=== PATIENT | male | born 1965 | race Caucasian/White ===

== ENCOUNTER 2017-04-29 22:36 | Emergency (ER) | payer MEDICAID ==
[~2017-04-29] VITALS: Ht 175.3 cm; Wt 100.0 kg
[~2017-04-29 22:36] MED LIST: HYDR-1348 PO; LACT10SO7 PO; MET5; OMEP20CA4 PO
[2017-04-30] MEDS ORDERED: ONDANSETRON HCL 4MG/2ML VIAL IV STA (00:50)
[2017-04-30] MEDS ORDERED: MORPHINE SULFATE 4 MG/ML CPJ (NOT FOR IM USE) IV STA (00:50)
[2017-04-30 01:07] LABS: HEMATOCRIT. 35.3 % (42.0-52.0); MEAN CORPUSCULAR HEMOGLOBIN 30.7 pg (28.0-32.0); MEAN CORPUSCULAR VOLUME 89.9 fL (80.0-94.0); MEAN PLATELET VOLUME 7.6 fl (7.4-10.4); PLATELET 175 x1000/uL (130-400); RED BLOOD CELL COUNT 3.92 mill/uL (4.7-6.1); RED CELL DISTRIBUTION WIDTH 15.3 % (11.6-14.6)
[2017-04-30 01:15] LABS: INR 1.3; PROTHROMBIN TIME 13.8 sec
[2017-04-30 01:24] LABS: CARBON DIOXIDE 28 mEq/L (21-32); CHLORIDE 97 mEq/L (98-107); TROPONIN I < 0.02 ng/mL (0.00-0.04)
[2017-04-30 01:28] LABS: PLATELET ESTIMATE NORMAL
[2017-04-30] MEDS ORDERED: HYDROCODONE/ACETAMINOPHEN 5/325MG TABLET PO ONE (05:30)
[2017-04-30 05:44] VITALS: BP 121/72
== END 2017-04-30 05:47 | disposition home or self-care (01) ==
LOC: ER 22:46
DX: M79.1 Myalgia (principal); I10 Essential (primary) hypertension; E78.00 Pure hypercholesterolemia, unspecified; Z87.891 Personal history of nicotine dependence
CPT/HCPCS: 36415; 71010; 80053; 83690; 83880; 84484; 85025; 85610; 93005; 96374; 96375; 99285; J2270; J2405; Z7610